=== PATIENT | male | born 1960 | race Caucasian/White ===

== ENCOUNTER 2017-01-30 15:47 | Outpatient (CLI) | payer OTHER ==
--- NOTE | 2017-01-30 16:36 | DIAGNOSTIC IMAGING REPORT ---
PROCEDURE: XR HIP 2VW W W/O AP PELVIS-RT INDICATION: Low back and right hip pain. TECHNIQUE: AP view of the pelvis and hips with lateral view of the right hip. COMPARISON: None. FINDINGS: RIGHT HIP: There are mild degenerative changes of the lateral acetabular small peripheral osteophytes. Osseous structures and joint spaces are otherwise normal. PELVIS: There mild degenerative change of the left hip joint (similar to the right hip joint). Osseous pelvis is normal. There are moderate degenerative changes of the lower lumbar spine (partially visualized). IMPRESSION: 1. Mild degenerative change of the right hip joint (with similar findings in the left hip joint). 2. 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 3. Negative pelvis.
== END 2017-01-30 23:00 ==
LOC: XR SRH 15:47
DX: M16.11 Unilateral primary osteoarthritis, right hip (principal); M51.36 Other intervertebral disc degeneration, lumbar region